=== PATIENT | female | born 1990 | race Caucasian/White ===

== ENCOUNTER 2021-09-22 09:22 | Emergency (ER) | payer OTHER ==
[2021-09-22] MEDS ORDERED: LOTRIMIN CREAM15 GM TP (15:17)
== END 2021-09-22 11:29 | disposition home or self-care (01) ==
LOC: ER1 09:22
DX: L53.9 Erythematous condition, unspecified (principal); B49 Unspecified mycosis; G40.909 Epilepsy, unspecified, not intractable, without status epilepticus
CPT/HCPCS: 99283